=== PATIENT | male | born 1985 | race Caucasian/White ===

== ENCOUNTER 2022-08-19 15:05 | Emergency (ER) | payer SELFPAY ==
[2022-08-19] MEDS ORDERED: Sodium Chloride 0.9% 2.5 ML Syringe FLUSH PRN ×2 (15:07→15:11)
[2022-08-19] MEDS ORDERED: Sodium Chloride 0.9% 10 ML Syringe FLUSH PRN ×2 (15:07→15:11)
[2022-08-19] MEDS ORDERED: Aspirin 81 MG Tab.Chew PO ONE (15:11)
[2022-08-19] MEDS ORDERED: Tenecteplase 50 MG Kit IV STA (15:14)
[2022-08-19] MEDS ORDERED: Sodium Chloride 0.9% 1,000 ML IV ONE (15:26)
[2022-08-19] MEDS ORDERED: Clopidogrel 75 MG Tab PO ONE (15:28)
[2022-08-19] MEDS ORDERED: Clopidogrel 75 MG Tab ONE (15:29)
[2022-08-19 16:09] LABS: CARBON DIOXIDE,CO2 25.6 mmol/L (21.0-32.0); POTASSIUM,K 3.2 mmol/L (3.5-5.1)
[2022-08-19 16:46] LABS: CORONAVIRUS COVID-19 NAA NEGATIVE (NEGATIVE); INFLUENZA A NAA NEGATIVE (NEGATIVE); INFLUENZA B NAA NEGATIVE (NEGATIVE); RESPIRATORY SYNCYTIAL VIR NAA NEGATIVE (NEGATIVE)
== END 2022-08-19 15:47 ==
LOC: MW.ED 15:05
DX: I21.3 ST elevation (STEMI) myocardial infarction of unspecified site (principal); F17.210 Nicotine dependence, cigarettes, uncomplicated; Z20.822 Contact with and (suspected) exposure to COVID-19
CPT/HCPCS: 0241U; 36415; 51702; 71045; 80053; 84484; 85025; 92977; 93005; 99285; A9270; J3101; J7030; 93010

== ENCOUNTER 2024-02-23 18:35 | Emergency (ER) | payer BC ==
[2024-02-23 21:01] LABS: BASOPHILS ABSOLUTE AUTO 0.03 K/uL (0.00-0.20); BASOPHILS PERCENT AUTO 0.6 % (0.0-1.0); HEMATOCRIT 40.2 % (42.0-52.0); IMMATURE GRAN ABSOLUTE AUTO 0.01 K/uL (0.00-0.05); IMMATURE GRAN PERCENT AUTO 0.2 % (0.0-0.4); LYMPHOCYTES ABSOLUTE AUTO 2.04 K/uL (1.00-4.80); LYMPHOCYTES PERCENT AUTO 40.9 % (24.0-44.0); MEAN CORPUSCULAR HEMOGLOBIN 32.5 pg (28.0-32.0); MEAN CORPUSCULAR HGB CONC 34.8 g/dL (32.0-36.0); MEAN CORPUSCULAR VOLUME 93.3 fL (83.0-99.0); MEAN PLATELET VOLUME 10.2 fL (9.4-12.4); MONOCYTES ABSOLUTE AUTO 0.41 K/uL (0.00-0.80); MONOCYTES PERCENT AUTO 8.2 % (0.0-8.0); NEUTROPHILS PERCENT AUTO 42.1 % (41.0-71.0); PLATELET COUNT,PLT 195 K/uL (150-400); RED BLOOD CELL COUNT 4.31 M/uL (4.52-5.90); WHITE BLOOD CELL COUNT,WBC 4.99 K/uL (3.9-11.3)
[2024-02-23 21:16] LABS: CORONAVIRUS COVID-19 NAA NEGATIVE (NEGATIVE); INFLUENZA A NAA NEGATIVE (NEGATIVE); INFLUENZA B NAA NEGATIVE (NEGATIVE); RESPIRATORY SYNCYTIAL VIR NAA NEGATIVE (NEGATIVE)
[2024-02-23 21:35] LABS: A/G RATIO 1.3 (0.9-1.6); BILIRUBIN TOTAL 0.7 mg/dL (0.2-1.0); CALCIUM 9.3 mg/dL (8.5-10.1); CARBON DIOXIDE,CO2 26.5 mmol/L (21.0-32.0); EST CRCL DRUG DOSING (CG) 114.3 mL/min; MAGNESIUM 2.3 mg/dL (1.8-2.4); POTASSIUM,K 3.7 mmol/L (3.5-5.1); PROTEIN TOTAL,TP 7.1 g/dL (6.4-8.2)
[2024-02-23] MEDS: Amoxicillin/Clavulanate K 875-125 MG Tab PO ONE (21:47)
== END 2024-02-23 21:55 | disposition home or self-care (01) ==
LOC: MW.ED 18:35
DX: J32.9 Chronic sinusitis, unspecified (principal); I25.2 Old myocardial infarction; Z75.8 Other problems related to medical facilities and other health care; Z79.899 Other long term (current) drug therapy; Z79.02 Long term (current) use of antithrombotics/antiplatelets; Z95.5 Presence of coronary angioplasty implant and graft
CPT/HCPCS: 0241U; 36415; 70450; 80053; 83735; 85025; 99284; A9270; 99283